=== PATIENT | male | born 1990 | race African-American/Black ===

== ENCOUNTER 2016-08-11 15:01 | Emergency (ER) | payer SELFPAY ==
[2016-08-11 15:14] VITALS: TEMP 98.2; BMI 31.1
[2016-08-11] MEDS ORDERED: morphine CARPU-JECT 4 MG/1 ML DISP.SYRIN IVPUSH ONE ×2 (15:57→19:00)
[2016-08-11] MEDS ORDERED: METHOCARBAMOL 500 MG TABLET PO ONE (15:59)
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
[2016-08-11] MEDS ORDERED: morphine CARPU-JECT 4 MG/1 ML DISP.SYRIN ONE ×2 (16:08→19:10)
[2016-08-11] MEDS ORDERED: METHOCARBAMOL 500 MG TABLET ONE (16:08)
[2016-08-11 16:32] LABS: BASOPHIL 0.9 % (0-2.0); EOSINOPHIL 0.7 % (0-4.5); MCH 31.4 pg (25.7-33.7); MCHC 34.2 g/dl (32.0-35.9); MEAN CELL VOLUME 91.8 fl (80-96); MEAN PLT VOLUME 8.8 fl (7.5-11.1); PLATELET COUNT 270 K/MM3 (134-434); RDW 12.9 % (11.9-15.9); WHITE BLOOD COUNT 5.4 K/mm3 (4.0-10.0)
[2016-08-11 16:57] LABS: ALBUMIN 3.8 g/dl (3.4-5.0); ANION GAP 6 (8-16); CALCIUM 9.3 mg/dL (8.5-10.1); CO2 29 mmol/L (21-32); CREATININE 0.9 mg/dL (0.7-1.3); GLUCOSE,RANDOM 85 mg/dL (74-106); SGOT/AST 19 U/L (15-37); SGPT/ALT 23 U/L (12-78); TOT PROT 6.7 g/dl (6.4-8.2)
[2016-08-11 17:03] LABS: ALK PHOS 89 U/L (45-117); BILIRUBIN,TOTAL 0.9 mg/dL (0.2-1.0)
[2016-08-11 18:51] VITALS: BP 132/77; PULSE 58
[2016-08-11] MEDS ORDERED: MECLIZINE HCL 25 MG TABLET (FP) PO STA (20:23)
[2016-08-11] MEDS ORDERED: MECLIZINE HCL 25 MG TABLET (FP) ONE (20:26)
[2016-08-11] MEDS ORDERED: OXYCODONE/APAP 5/325MG COMBO TABLET PO ONE (22:08)
[2016-08-11] MEDS ORDERED: ONDANSETRON 4 MG/2 ML VIAL IVPUSH STA (22:08)
[2016-08-11] MEDS ORDERED: SODIUM CHLORIDE 1,000 ML IV STA (22:09)
[2016-08-11] MEDS ORDERED: ONDANSETRON 4 MG/2 ML VIAL ONE (22:32)
--- NOTE | 2016-08-11 23:33 | PDOC ---
*Physical Exam - Vital Signs Last Vital Signs Temp Pulse Resp BP Pulse Ox 98.2 F 58 L 17 132/77 100 08/11/16 15:12 08/11/16 18:50 08/11/16 18:50 08/11/16 18:50 08/11/16 18:50 ED Treatment Course - LABORATORY CBC & Chemistry Diagram: 08/11/16 16:05 08/11/16 16:05 - ADDITIONAL ORDERS Additional order review: Laboratory Results 08/11/16 16:05 Sodium 141 Potassium 4.0 Chloride 106 Carbon Dioxide 29 Anion Gap 6 L BUN 10 Creatinine 0.9 Creat Clearance w eGFR > 60 Random Glucose 85 Calcium 9.3 Total Bilirubin 0.9 AST 19 ALT 23 Alkaline Phosphatase 89 Total Protein 6.7 Albumin 3.8 08/11/16 16:05 RBC 4.49 MCV 91.8 MCHC 34.2 RDW 12.9 MPV 8.8 Neutrophils % 31.0 L Lymphocytes % 54.4 H Monocytes % 13.0 H Eosinophils % 0.7 Basophils % 0.9 - RADIOLOGY Radiology Studies Ordered: Category Date Time Status FEMUR-LEFT [RAD] Stat Radiology 08/11/16 20:55 Completed FEMUR-RIGHT [RAD] Stat Radiology 08/11/16 20:55 Completed HIP & PELVIS-LEFT [RAD] Stat Radiology 08/11/16 20:55 Completed HIP & PELVIS-RIGHT [RAD] Stat Radiology 08/11/16 20:55 Completed - Medications Given in the ED: ED Medications Discontinued Medications Generic Name Dose Route Start Last Admin Trade Name Freq PRN Reason Stop Dose Admin Sodium Chloride 1,000 mls @ 1,000 mls/hr 08/11/16 22:09 08/11/16 22:39 Normal Saline - IV 08/11/16 23:08 1,000 mls/hr ASDIR STA Administration Meclizine HCl 25 mg 08/11/16 20:23 08/11/16 20:30 Antivert - PO 08/11/16 20:24 25 mg ONCE STA Administration Methocarbamol 500 mg 08/11/16 15:59 08/11/16 16:15 Robaxin - PO 08/11/16 16:00 500 mg ONCE ONE Administration Morphine Sulfate 4 mg 08/11/16 15:57 08/11/16 16:15 Morphine Injection - IVPUSH 08/11/16 15:58 4 mg ONCE ONE Administration Morphine Sulfate 4 mg 08/11/16 19:00 08/11/16 19:17 Morphine Injection - IVPUSH 08/11/16 19:01 4 mg ONCE ONE Administration Ondansetron HCl 4 mg 08/11/16 22:08 08/11/16 22:39 Zofran Injection IVPUSH 08/11/16 22:09 4 mg ONCE STA Administration *DC/Admit/Observation/Transfer Diagnosis at time of Disposition: Disc herniation Qualifiers: Spinal region: lumbosacral Qualified Code(s): M51.27 - Other intervertebral disc displacement, lumbosacral region - Discharge Dispostion Condition at time of disposition: Stable Admit: No - Prescriptions Prescriptions: Oxycodone HCl/Acetaminophen [Percocet 5-325 mg Tablet] 1 - 2 tab PO Q6H #20 tablet MDD 4 Methocarbamol [Robaxin -] 500 mg PO TID #30 tablet Ondansetron [Zofran *Odt*] 4 mg SL TID #30 od.tablet - Referrals Referrals: Aries Hall MD [Staff Physician] - - Patient Instructions Printed Discharge Instructions: DI for Herniated Disc - Post Discharge Activity Work/School Note: Back to Work
[2016-08-11] MEDS ORDERED: OXYCODONE/APAP 5/325MG COMBO TABLET ONE (23:37)
[2016-08-12] MEDS ORDERED: ONDANSETRON 4 MG/2 ML VIAL IVPUSH STA (00:16)
[2016-08-12] MEDS ORDERED: ONDANSETRON 4 MG/2 ML VIAL ONE (00:19)
== END 2016-08-12 00:44 | disposition home or self-care (01) ==
LOC: JER 15:01
PROC: 3E033NZ Introduction of Analgesics, Hypnotics, Sedatives into Peripheral Vein, Percutaneous Approach (ICD-10-PCS; principal; 2016-08-11)
PROC: 3E033GC Introduction of Other Therapeutic Substance into Peripheral Vein, Percutaneous Approach (ICD-10-PCS; 2016-08-11)
PROC: 3E0337Z Introduction of Electrolytic and Water Balance Substance into Peripheral Vein, Percutaneous Approach (ICD-10-PCS; 2016-08-11)
DX: M51.27 Other intervertebral disc displacement, lumbosacral region (principal); V43.62XA Car passenger injured in collision with other type car in traffic accident, initial encounter; Y93.89 Activity, other specified; Y92.410 Unspecified street and highway as the place of occurrence of the external cause
CPT/HCPCS: 36415; 70450-TC; 72125-TC; 72131-TC; 73523-TC; 73552-TC-LT; 73552-TC-RT; 80053; 85025; 99283-25